=== PATIENT | female | born 1950 | race Caucasian/White ===

== ENCOUNTER 2016-06-19 04:31 | Emergency (ER) | payer MEDICARE ==
[~2016-06-19] VITALS: Ht 165.1 cm; Wt 72.6 kg
[2016-06-19 05:00] VITALS: BP 153/72
[2016-06-19 05:15] LABS: POTASSIUM ISTAT 3.6 mmol/L (3.5-5.0)
[2016-06-19] MEDS ORDERED: MECLIZINE HCL 12.5 MG TABLET. PO ONE (05:15)
--- NOTE | 2016-06-19 05:22 | PHYS DOC ---
Past Medical History Past Medical History: Anxiety, High Cholesterol, Hypertension, Hypothyroid Past Surgical History: Alcohol Use: Heavy Additional Information: pt's daughter states she drinks large amount of etoh daily. "wine and etoh" pt states she drinks "one glass of wine a day" Drug Use: None Adult General Chief Complaint Chief Complaint: DIZZY/LIGHT HEADED HPI HPI Patient is a 66 year old female with chronic dizziness who presents with daughter for evaluation of left-sided arm and shoulder pain when she woke yesterday at 8 AM, lasting a few minutes, resolving after taking ibuprofen and using icy hot. She notes being more dizziness intermittently anything usual for the past day. Dizziness occurs with position changes, fatigues within seconds, is described as a spinning feeling. States this feels exactly like her chronic dizziness, but is worse. She denies vision changes, headache, numbness, tingling , weakness, chest pain, palpitations, dyspnea, abdominal pain, fever or chills, nausea or vomiting. Denies fall or trauma. Is able to walk without assistance. Review of Systems Review of Systems Constitutional: Denies fever or chills [] Eyes: Denies change in visual acuity, redness, or eye pain [] HENT: Denies nasal congestion or sore throat [] Respiratory: Denies cough or shortness of breath [] Cardiovascular: No additional information not addressed in HPI [] GI: Denies abdominal pain, nausea, vomiting, bloody stools or diarrhea [] : Denies dysuria or hematuria [] Musculoskeletal: Denies back pain or joint pain [] Integument: Denies rash or skin lesions [] Neurologic: Denies headache, focal weakness or sensory changes [] Endocrine: Denies polyuria or polydipsia [] Current Medications Current Medications Current Medications Medications (Trade) Dose Ordered Sig/Ana Start Time Stop Time Status Last Admin Dose Admin Meclizine HCl (Antivert) 25 mg 1X ONCE 06/19/16 05:15 06/19/16 05:16 DC 06/19/16 05:28 25 MG Allergies Allergies Allergies Coded Allergies Type Severity Reaction Last Updated Verified No Known Drug Allergies 08/01/15 No Physical Exam Physical Exam Constitutional: Well developed, well nourished, no acute distress, non-toxic appearance. [] HENT: Normocephalic, atraumatic, bilateral external ears normal, oropharynx moist, no oral exudates, nose normal. [] Eyes: PERRLA, EOMI. [] Neck: Normal range of motion, supple. [] Cardiovascular:Heart rate regular rhythm [] Lungs & Thorax: Bilateral breath sounds clear to auscultation [] Abdomen: Bowel sounds normal, soft, no tenderness. [] Skin: Warm, dry, no erythema, no rash. [] Back: Normal range of motion. [] Extremities: No tenderness, ROM intact, no edema. [] Neurologic: Alert and oriented X 3, normal motor function, normal sensory function, no focal deficits noted, cranial nerves II through XII intact, no extremity drift, no nystagmus, normal Romberg, ambulatory with a steady gait. [] Psychologic: Affect normal, judgement normal, mood normal. [] Current Patient Data Vital Signs Vital Signs Date Time Temp Pulse Resp B/P (MAP) Pulse Ox O2 Delivery O2 Flow Rate FiO2 06/19/16 04:35 98.0 81 20 202/87 (125) 99 Room Air 98.0 Lab Values Laboratory Tests Test 06/19/16 05:10 POC Hemoglobin 12.9 g/dL (12-15) POC Hematocrit 38 % (36-40) POC Sodium 142 mmol/L (135-145) POC Potassium 3.6 mmol/L (3.5-5.0) POC Chloride 104 mmol/L (98-110) POC Total CO2 24 mmol/L (23-32) Anion Gap 18 mmol/L (6-14) H POC Blood Urea Nitrogen 23 mg/dL (8-26) POC Creatinine 0.9 mg/dL (0.5-1.4) Glucose Level 92 mg/dL (70-99) POC Ionized Calcium (Karen) 1.29 mmol/L (1.13-1.32) POC Troponin I 0.00 ng/ml (<0.08) Laboratory Tests 06/19/16 05:10 EKG EKG EKG as interpreted by me as normal sinus rhythm, rate 77, no ST-T changes, normal intervals, no ectopy Radiology/Procedures Radiology/Procedures Chest xray as interpreted by me with no acute cardiopulmonary disease process Course & Med Decision Making Course & Med Decision Making Pertinent Labs and Imaging studies reviewed. (See chart for details) Suspect peripheral vertigo. Workup is unremarkable. Discussed supportive care. Return precautions given. She and family understand and agree with plan. Dragemerson Disclaimer Dragon Disclaimer This electronic medical record was generated, in whole or in part, using a voice recognition dictation system. Departure Departure Impression: Primary Impression: Vertigo Disposition: 01 HOME, SELF-CARE Condition: STABLE Referrals: UNKNOWN PCP NAME (PCP) Patient Instructions: Vertigo, [id number] Additional Instructions: Take meclizine as needed for dizziness. Follow-up with your primary care doctor within one week. Return for any concerns. Scripts Meclizine Hcl (MECLIZINE HCL) 25 Mg Tablet 1 TAB PO PRN TID Y for DIZZINESS, #10 TAB Prov: Lorrie CRAWFORD MD 06/19/16 Lorrie CRAWFORD MD June 19, 2016 05:22
[2016-06-19] MEDS ORDERED: MECL25TA3 PO (05:31)
--- NOTE | 2016-06-19 07:59 | RAD ---
Indication chest pain. PA and lateral views of the chest were obtained. Comparison is made to an examination 08/01/2015. Heart size is at the upper limits of normal but unchanged. Slightly tortuous thoracic aorta is noted also similar. Pulmonary vasculature is normal. The lungs are clear of acute infiltrates. There has not been a significant change in the appearance of the chest compared to the previous exam. IMPRESSION: No acute finding. No significant change
--- NOTE | 2016-06-19 09:37 | EKG ---
[facility] [address] [place] [address] Test Date: 2016-06-19 Test Time: 04:41:08 Pat Name: GABRIELA PEPE Department: Room: Gender: F Lathe Operator: : 1950 Requested By: Lorrie CRAWFORD Order Number: [id number] Reading MD: Zakia Casey Measurements Intervals [place] Rate: 77 P: 41 AL: 182 QRS: 12 QRSD: 88 T: 51 QT: 408 QTc: 464 Interpretive Statements SINUS RHYTHM NORMAL ECG Electronically Signed On 06-20-2016 18:09:38 CDT by Zakia Casey
== END 2016-06-19 05:50 | disposition home or self-care (01) ==
LOC: ER 04:31
DX: R42 Dizziness and giddiness (principal); F41.9 Anxiety disorder, unspecified; E78.00 Pure hypercholesterolemia, unspecified; E03.9 Hypothyroidism, unspecified; I10 Essential (primary) hypertension
CPT/HCPCS: 71020; 80047; 84484; 93005; 99284; J8597

== ENCOUNTER → 2019-08-02 | Outpatient (CLI) | payer OTHER ==
[~2019-08-02] MED LIST: MECL-75 PO
--- NOTE | 2019-08-02 16:47 | RAD ---
DATE: 08/02/2019 1:41 PM EXAM: MAMMO NHI SCREENING BILATERAL HISTORY: Screening. Last mammogram over 10 years ago at a facility no longer recalled. COMPARISON: None. This will serve as a new baseline. TECHNIQUE: Bilateral CC and MLO views of the breasts were performed. Bilateral breast tomosynthesis was performed in CC and MLO projections. Computer-aided detection was utilized. FINDINGS: Breast Density: SCATTERED The breast parenchyma shows scattered fibroglandular densities. Breast parenchyma level B Right breast shows 2 clusters of subareolar calcifications the need additional imaging with magnification views in the CC and true lateral projections. Left breast shows questionable early nipple retraction. This needs additional imaging with anterior spot compression views and targeted left breast ultrasound. IMPRESSION: 1. Right breast indeterminate microcalcifications, findings for which additional imaging is advised. 2. Left breast nipple inversion/retraction. Additional imaging with anterior spot compression and targeted ultrasound recommended. BI-RADS CATEGORY: 0 INCOMPLETE: NEEDS ADDITIONAL IMAGING EVALUATION AND/OR PRIOR MAMMOGRAMS FOR COMPARISON. RECOMMENDED FOLLOW-UP: ADD ADDITIONAL IMAGING The patient will be contacted to return for additional imaging and a supplemental report will follow. PQRS compliance statement: Patient information was entered into a reminder system with a target due date for the next mammogram. Mammography is a sensitive method for finding small breast cancers, but it does not detect them all and is not a substitute for careful clinical examination. A negative mammogram does not negate a clinically suspicious finding and should not result in delay in biopsying a clinically suspicious abnormality. "Our facility is accredited by the [employer] Mammography Program."
== END | disposition home or self-care (01) ==
LOC: MAMMO 13:17
PROVIDERS: ATTEND Family Medicine
DX: Z12.31 Encounter for screening mammogram for malignant neoplasm of breast (principal); N64.89 Other specified disorders of breast
CPT/HCPCS: 77063; 77067

== ENCOUNTER → 2019-08-28 | Outpatient (CLI) | payer OTHER ==
--- NOTE | 2019-08-28 16:46 | RAD ---
EXAMINATION: DIGITAL DIAGNOSTIC BILATERAL, BREAST BILATERAL History: Reason: ABNORMAL MAMMOGRAM / Spl. Instructions: / History: Comparison: 08/02/2019 screening exam. No other prior exams are reportedly available. Technique: Bilateral digital diagnostic mammogram views were obtained. CAD was utilized. Findings: Breast Tissue Density B : There are scattered areas of fibroglandular density. Ductal distribution calculations are noted in the right subareolar region. Distortion involving the left subareolar region is somewhat less evident on spot compression imaging but this is without tomographic images. Ultrasound imaging of the right subareolar region demonstrates mildly dilated duct with calcifications within it. On radial images, there is hypoechogenicity adjacent to the duct raising question of a mass lesion. It is not well delineated on orthogonal views however. Benign-appearing right axillary lymph nodes are present. Ultrasound imaging of the left subareolar region appears to demonstrate distortion just deep to the nipple. There is no conclusive mass. Left axilla is unremarkable. IMPRESSION: Right breast ductal calcifications with suggestion of adjacent mass to the duct. Ultrasound guided core biopsy is recommended. Left breast subareolar distortion appears very present. Left nipple inversion is reportedly present according to the patient since her teenage years. No symptoms reported by the patient. Six-month follow-up left unilateral diagnostic mammogram and possible ultrasound recommended. BI-RADS Category 4: Suspicious. A message was left on the referring physician's office voicemail on 08/28/2019 at 4:40 PM. The images were reviewed with computer aided detection. Patient information is entered into the reminder system with a target due date for the next screening mammogram. Mammography is the most sensitive method for finding small breast cancers, but it does not detect them all and is not a substitute for careful clinical examination. A negative mammogram does not negate a clinically suspicious finding and should not result in delay in biopsying a clinically suspicious abnormality. "Our facility is accredited by the [employer] Mammography Program." Electronically signed by: Wally Zeng MD (08/28/2019 4:42 PM) [facility]
== END | disposition home or self-care (01) ==
LOC: MAMMO 11:23
PROVIDERS: ATTEND Family Medicine
DX: R92.1 Mammographic calcification found on diagnostic imaging of breast (principal)
CPT/HCPCS: 77066; 76641-50

== ENCOUNTER → 2019-09-17 | Outpatient (CLI) | payer OTHER ==
--- NOTE | 2019-09-19 09:07 | PATHOLOGY ---
[facility] Accession Number: [id number] . 01 Material submitted: . breast - RIGHT BREAST RETROAREOLAR DUCTAL MASS. Modifiers: right . 01 Clinical history: . Right breast ductal mass/retroareolar . 02 Diagnosis: Breast tissue, right breast retroareolar/ductal mass, needle biopsies: - Ductal papilloma showing hyalinization and focal dystrophic calcification. - Periductal chronic inflammation, focal. . (JPM:mm; 09/18/2019) [facility] 09/18/2019 1547 Local . 02 Comment: There is no evidence of malignancy. . (JPM:mml; 09/18/2019) . 02 Electronically signed: . Luisito Rivera MD, Pathologist NPI- [id number] . 01 Gross description: . The specimen is received in formalin, labeled "Diana Munore, right retroareolar ductal" and consists of 2 needle cores of pink-day breast tissue measuring 0.7 cm and 1.2 cm in length and 0.2 cm each which are entirely submitted in A1-A2. The specimen was obtained at 9:24 AM on 09/17/2019 and placed in formalin at 9:30 AM. The cold ischemic time is 6 minutes and the total formalin fixation time is greater than 6 hours less than 72 hours. (SDY; 09/17/2019) SYU/SYU 09/17/2019 1617 Local . 02 Pathologist provided ICD-10: D24.1, N61.0 . 02 CPT . 666590 Specimen Comment: A courtesy copy of this report has been sent to [phone], [phone] Specimen Comment: [id number] Specimen Comment: Report sent to / DR WRIGHT Performed at: 01 [facility] [address], [place], [place] [id number] MD Dale Snider MD Phone: [phone] Performed at: 02 [facility] [address] [place], [place] [id number] MD Luisito Rivera MD Phone: [phone]
--- NOTE | 2019-09-19 10:27 | RAD ---
Examination: 1. Ultrasound-guided right breast core needle biopsy. 2. Digital right postprocedure mammogram. INDICATION: Developing medial periareolar right breast calcifications recommended for ultrasound-guided core needle biopsy. COMPARISON: Screening mammogram of 08/02/2019, diagnostic mammogram of 08/28/2019 and Limited right breast ultrasound of 08/28/2019. TECHNIQUE: Informed consent was obtained and an appropriate procedural pause was observed. Using standard sterile technique, ultrasound guidance and local anesthesia, 2 passes using a 14-gauge spring-loaded core needle biopsy were obtained of calcifications within a medial anterior right breast duct and calcifications in the specimen were confirmed by taking a radiograph of the specimens. After confirming satisfactory acquisition of calcifications in the breast biopsy specimen, an S-shaped biopsy marker was deployed at the biopsy site and hemostasis ensured with direct breast compression for several minutes. Puncture site was dressed and post procedure mammogram was obtained showing satisfactory deployment of the S-shaped biopsy marker adjacent to the targeted calcifications. Post procedure instructions were reviewed prior to patient discharge from the imaging suite. She tolerated the procedures without incident. FINDINGS: Ultrasound-guided right breast core needle biopsy of medial periareolar calcifications. Pathology results are pending. An addendum will be issued once pathology results become available Electronically signed by: Erika Hamilton MD (09/19/2019 10:24 AM) [id number]
== END | disposition home or self-care (01) ==
LOC: US 08:06
PROVIDERS: ATTEND Family Medicine
DX: R92.8 Other abnormal and inconclusive findings on diagnostic imaging of breast (principal); Z79.899 Other long term (current) drug therapy
CPT/HCPCS: 19083; 77065; 88305; C1713; 19081; 76942

== ENCOUNTER → 2020-12-18 | Outpatient (CLI) | payer OTHER ==
--- NOTE | 2020-12-18 17:22 | KCIC ---
Bilateral digital screening 2-D and 3-D (digital breast tomosynthesis) mammogram: Reason for examination: Routine screening. Comparison: Mammograms from 09/17/2019, 07/29/2019 and 08/02/2019. Interpretation was made with the benefit of CAD. FINDINGS: Breast density: Category B. There are scattered areas of fibroglandular density. No suspicious breast mass, malignant appearing calcifications, or architectural distortion is seen. T here calcifications in the right subareolar region with associated biopsy marker consistent with kimi gn calcifications. There are prominent ducts in the right retroareolar region which are stable. Again seen is inversion of the patient's left nipple that is a chronic finding by history. IMPRESSION: No evidence of malignancy. No change in benign calcifications in the right subareolar region. Assessment: BI-RADS 2. Benign findings. Recommendation: Routine screening mammograms. The patient will receive a letter with the results in the mail. Patient information will be entered i nto the mammography reminder system with a target recall date for the next mammogram. A reminder mina er will be generated. Electronically signed by: Laila Rodriguez MD (12/18/2020 5:20 PM) [id number]
== END ==
LOC: KCIC MAMMO 09:43
PROVIDERS: ATTEND Internal Medicine
DX: Z12.31 Encounter for screening mammogram for malignant neoplasm of breast (principal)
CPT/HCPCS: 77063; 77067